=== PATIENT | female | born 1965 | race Caucasian/White ===

== ENCOUNTER → 2019-07-22 | Outpatient (CLI) | payer OTHER ==
--- NOTE | 2019-07-22 11:07 | 2DMMODE ---
[facility] [address] [place] [address] 2 D/M-MODE ECHOCARDIOGRAM Name: ZOIE GARCIA Room #: REG [facility]#: [id number] Admission: 07/22/19 Attend Phys: Geoffrey Hu Discharge: Date of : 69 Report #: [id number] THIS REPORT FOR: //name// APPROVED REPORT Study performed: 07/22/2019 09:43:22 EXAM: Comprehensive 2D, Doppler, and color-flow Echocardiogram Patient Location: Out-Patient Room #: Echo lab 2 Status: routine BSA: 1.80 HR: 71 bpm BP: 162/96 mmHg Rhythm: NSR Other Information Study Quality: Good Indications Chest Pain Hypertension/HDD 2D Dimensions RVDd: 29.55 mm IVSd: 9.13 (7-11mm) LVOT Diam: 17.71 (18-24mm) LVDd: 41.44 mm PWd: 8.41 (7-11mm) Ascending Ao: 27.94 (22-36mm) LVDs: 27.62 (25-40mm) Aortic Root: 27.89 mm IVC: 10.00 mm Volumes Left Atrial Volume (Systole) Single Plane 4CH: 41.26 mL Single Plane 2CH: 36.47 mL LA ESV Index: 23.00 mL/m2 Aortic Valve AoV Peak Chaz.: 1.28 m/s AO Peak Gr.: 6.56 mmHg LVOT Max P.31 mmHg LVOT Max V: 1.15 m/s BRITTNEY Vmax: 2.22 cm2 Mitral Valve E/A Ratio: 0.8 MV Decel. Time: 202.02 ms [facility] [address] [place] [address] 2 D/M-MODE ECHOCARDIOGRAM Name: ZOIE GARCIA Room #: REG [facility]#: [id number] Admission: 07/22/19 Attend Phys: Geoffrey Hu Discharge: Date of : 69 Report #: [id number] MV E Max Chaz.: 0.84 m/s MV A Chaz.: 1.00 m/s MV PHT: 58.59 ms IVRT: 129.18 ms Pulmonary Valve PV Peak Chaz.: 0.89 m/s PV Peak Gr.: 3.15 mmHg Pulmonary Vein P Vein S: 0.61 m/s P Vein A: 0.25 m/s P Vein D: 0.34 m/s P Vein A Dur.: 110.7 msec P Vein S/D Ratio: 1.79 Tricuspid Valve TR Peak Chaz.: 2.48 m/s TR Peak Gr.: 24.55 mmHg PA Pressure: 29.00 mmHg Left Ventricle The left ventricle is normal size. There is normal LV segmental wall motion. There is normal left ventricular wall thickness. Left ventricular systolic function is normal. The left ventricular ejection fraction is within the normal range. LVEF is 55-60%. Grade I - abnormal relaxation pattern. Right Ventricle The right ventricle is normal size. The right ventricular systolic function is normal. Atria The left atrium size is normal. The right atrium size is normal. Aortic Valve The aortic valve is normal in structure. Trace aortic regurgitation. There is no aortic valvular stenosis. Mitral Valve The mitral valve is normal in structure. Trace to mild mitral regurgitation. No evidence of mitral valve stenosis. Tricuspid Valve The tricuspid valve is normal in structure. There is trace tricuspid regurgitation. Estimated PAP 29 mmHg. There is no pulmonary hypertension. [facility] [place] [address] 2 D/M-MODE ECHOCARDIOGRAM Name: ZOIE GARCIA Room #: REG [facility]#: [id number] Admission: 07/22/19 Attend Phys: Geoffrey Hu Discharge: Date of : 69 Report #: [id number] Pulmonic Valve The pulmonary valve is normal in structure. There is no pulmonic valvular regurgitation. Great Vessels The aortic root is normal in size. IVC is normal in size and collapses >50% with inspiration. Pericardium There is no pericardial effusion. <Conclusion> The left ventricle is normal size. LVEF is 55-60%. The aortic valve is normal in structure. Trace aortic regurgitation. The mitral valve is normal in structure. Trace to mild mitral regurgitation. The tricuspid valve is normal in structure. There is trace tricuspid regurgitation. Estimated PAP 29 mmHg. There is no pulmonary hypertension. The pulmonary valve is normal in structure. There is no pulmonic valvular regurgitation. There is no pericardial effusion. <ELECTRONICALLY SIGNED> By: Geoffrey Torres MD 07/22/19 [id number] 05 Geoffrey Torres MD /INF
== END ==
LOC: CV 09:34
DX: I34.0 Nonrheumatic mitral (valve) insufficiency (principal); R00.0 Tachycardia, unspecified; I10 Essential (primary) hypertension